=== PATIENT | male | born 1955 | race Caucasian/White ===

== ENCOUNTER → 2016-07-10 | Outpatient (CLI) | payer OTHER ==
[2016-07-10 16:02] LABS: ABSOLUTE BASOPHILS # (AUTO) 0.1 10^3/uL (0.0-0.2); ABSOLUTE EOSINOPHILS # (AUTO) 0.5 10^3/uL (0.0-0.6); ABSOLUTE MONOCYTES (AUTO) 0.5 10^3/uL (0.1-1.4); ABSOLUTE NEUT (AUTO) 5.4 10^3/uL (1.7-8.2); BASOPHILS % (AUTO) 0.6 % (0-2); EOSINOPHILS % (AUTO) 6.4 % (0-6); HEMATOCRIT 37.8 % (37.9-51.0); HEMOGLOBIN 13.1 g/dL (13.5-17.0); HGB HCT DIFFERENCE 1.5; LYMPHOCYTES % (AUTO) 23.2 % (13-45); MEAN CORPUSCULAR HEMOGLOBIN 31.2 pg (27.0-33.4); MEAN CORPUSCULAR HGB CONC 34.6 g/dL (32.0-36.0); MEAN CORPUSCULAR VOLUME 90 fl (80-97); MONOCYTES % (AUTO) 6.1 % (3-13); RED BLOOD COUNT 4.19 10^6/uL (4.35-5.55); RED CELL DISTRIBUTION WIDTH 12.9 % (11.5-14.0); SEGMENTED NEUTROPHILS % (AUTO) 63.7 % (42-78); WHITE BLOOD COUNT 8.4 10^3/uL (4.0-10.5)
[2016-07-10 16:27] LABS: ALANINE AMINOTRANSFERASE 45 U/L (21-72); ALBUMIN 4.4 g/dL (3.5-5.0); ALKALINE PHOSPHATASE 56 U/L (38-126); ANION GAP 14 (5-19); ASPARTATE AMINO TRANSFERASE 51 U/L (17-59); BILIRUBIN,TOTAL 0.7 mg/dL (0.2-1.3); BLOOD UREA NITROGEN 17 mg/dL (7-20); CARBON DIOXIDE 25 mmol/L (22-30); CHLORIDE 98 mmol/L (98-107); CREATININE RESULT 1.07 mg/dL (0.52-1.25); GLUCOSE 270 mg/dL (75-110); POTASSIUM 5.3 mmol/L (3.6-5.0); SODIUM 136.9 mmol/L (137-145); TOTAL PROTEIN 7.1 g/dL (6.3-8.2)
== END ==
LOC: OD 14:25
PROVIDERS: ATTEND Orthopaedic Surgery Sports Medicine
DX: Z01.810 Encounter for preprocedural cardiovascular examination (principal); Z01.811 Encounter for preprocedural respiratory examination
CPT/HCPCS: 36415; 80053; 85025; 87070

== ENCOUNTER → 2017-01-02 | Outpatient (CLI) | payer OTHER ==
--- NOTE | 2017-01-02 16:39 | XCELERA REPORT ---
[address] [address] Lower Extremity Arterial Evaluation Name: ZACHARY DILLON Age: 61 yrs Gender: Male : 1955 Patient Status: Outpatient Patient Location: Study Date: 01/02/2017 12:42 PM Procedure: A color flow and duplex scan of the lower extremity arteries was performed bilaterally with velocity and waveform anaylsis. Ankle brachial indicies performed. Reason For Study: DM Ordering Physician: FARHANA ERIC Performed By: Cindy Graf Measurements and Calculations Right Left ASSISTANT MANAGER AIRSIDE OPERATIONS PSV 76.1 99.9 cm/sec Prox PFA PSV 47.2 -54.1 cm/sec Prox SFA PSV 77.1 102.5 cm/sec Mid SFA PSV -85.9 -73.8 cm/sec Dist SFA PSV -75.6 -76.4 cm/sec Prox Pop A PSV 57.4 56.2 cm/sec Dist ALESHIA PSV 77.8 88.4 cm/sec Dist BAR HOST PSV 62.9 103.1 cm/sec Jim Pedis PSV 86.9 66.4 cm/sec Right Side Arterial Evaluation Normal velocity and triphasic waveforms noted from the Common Femoral artery to the infrageniculate vessels. 0 % stenosis noted. Ankle Brachial index is 1.3. Left Side Arterial Evaluation Normal velocity and triphasic waveforms noted from the Common Femoral artery to the infrageniculate vessels. 0 % stenosis noted. Ankle Brachial index is 1.3. Interpretation Summary No hemodynamically significant lesions in the bilateral lower extremities, on duplex imaging, at rest. : FARHANA ERIC > Levon Treviño
== END ==
LOC: SP 12:35
PROVIDERS: ATTEND Internal Medicine
DX: E08.51 Diabetes mellitus due to underlying condition with diabetic peripheral angiopathy without gangrene (principal)
CPT/HCPCS: 93922; 93925

== ENCOUNTER 2017-01-17 10:29 | Day surgery (SDC) | payer OTHER ==
[2017-01-15 12:23] LABS: ABSOLUTE EOSINOPHILS # (AUTO) 0.1 10^3/uL (0.0-0.6); ABSOLUTE LYMPHOCYTES (AUTO) 2.4 10^3/uL (0.5-4.7); ABSOLUTE MONOCYTES (AUTO) 0.5 10^3/uL (0.1-1.4); ABSOLUTE NEUT (AUTO) 5.4 10^3/uL (1.7-8.2); BASOPHILS % (AUTO) 0.4 % (0-2); HEMATOCRIT 36.4 % (37.9-51.0); HEMOGLOBIN 13.2 g/dL (13.5-17.0); HGB HCT DIFFERENCE 3.2; LYMPHOCYTES % (AUTO) 28.4 % (13-45); MEAN CORPUSCULAR HEMOGLOBIN 32.5 pg (27.0-33.4); MEAN CORPUSCULAR HGB CONC 36.1 g/dL (32.0-36.0); MEAN CORPUSCULAR VOLUME 90 fl (80-97); MONOCYTES % (AUTO) 5.8 % (3-13); RED BLOOD COUNT 4.05 10^6/uL (4.35-5.55); RED CELL DISTRIBUTION WIDTH 13.6 % (11.5-14.0); SEGMENTED NEUTROPHILS % (AUTO) 64.4 % (42-78); WHITE BLOOD COUNT 8.4 10^3/uL (4.0-10.5)
[2017-01-15 12:37] LABS: APPEARANCE,URINE CLEAR; BILIRUBIN,URINE NEGATIVE (NEGATIVE); GLUCOSE, URINE NEGATIVE (NEGATIVE); KETONES,URINE NEGATIVE (NEGATIVE); LEUKOCYTE ESTERASE,URINE NEGATIVE (NEGATIVE); NITRITE,URINE NEGATIVE (NEGATIVE); PROTEIN,URINE NEGATIVE (NEGATIVE); URINE SPECIFIC GRAVITY 1.003; UROBILINOGEN,URINE NEGATIVE mg/dL (<2.0)
[~2017-01-17 10:29] MED LIST: CEFAZOLIN 1 GM/D5W RTU 1 GM/50 ML RTUPB IV PRN; RINGERS SOLUTION,LACTATED 1,000 ML IV PRN
[2017-01-17] MEDS ORDERED: DIPHENHYDRAMINE HCL 50 MG/ML VIAL ONE (10:32)
[2017-01-17] MEDS ORDERED: LIDOCAINE 2% INJ (20 MG/ML) 20 ML MDV ONE ×2 (10:32→10:53)
[2017-01-17] MEDS ORDERED: MIDAZOLAM 2 MG/2 ML INJ ONE ×2 (10:32)
[2017-01-17] MEDS ORDERED: FENTANYL CITRATE INJ/PF 100 MCG/2 ML AMPUL ONE (10:32)
[2017-01-17] MEDS ORDERED: KETOROLAC TROMETHAMINE 60 MG/2 ML SDV ONE (10:33)
[2017-01-17] MEDS ORDERED: BUPIVACAINE HCL 0.5 % INJ/PF 30 ML SDV ONE ×2 (10:33→10:53)
[2017-01-17] MEDS ORDERED: LIDOCAINE 2% INJ-PF (20 MG/ML) 10 ML AMPUL ONE (10:33)
[2017-01-17] MEDS ORDERED: PROPOFOL INJ 200 MG/20 ML VIAL IV ONE (10:34)
[2017-01-17] MEDS ORDERED: DEXAMETHASONE SOD PHOSPHATE INJ 4 MG/1 ML VIAL ONE (10:53)
[2017-01-17] MEDS ORDERED: OXYCODONE-ACETAMINOPHEN 5-325 MG TABLET ONE (13:11)
--- NOTE | 2017-01-17 14:09 | [facility] OPERATIVE REPORT E ---
[facility] NAME: ZACHARY DILLON AGE: 61Y DATE OF SURGERY: 01/17/2017 ROOM: PREOPERATIVE DIAGNOSIS: Chronic heel spur syndrome right foot. POSTOPERATIVE DIAGNOSIS: Chronic heel spur syndrome right foot. OPERATION: Endoscopic plantar fasciotomy right foot. SURGEON: DAJUAN GRECO D.P.M. INTRAOPERATIVE FINDINGS: Indicated thickening of the plantar fascia at its attachment to the medical calcaneal planter tubercle of the right foot. There was also a presence of a large spur. Intraoperative findings were confirmed clinically and radiographically. PROCEDURE: The patient was laid in the dorsal recumbent position. The right foot and leg were prepped and draped in the usual standard sterile orthopedic manner after the local anesthesia was administered which was a total ankle block. At this point measurements from the x-rays were transferred to the medial aspect of the right heel. The measurements were as follows: About 5 cm from the posterior aspect of the heel to the tip of the heel spur and about 1.5 cm from the plantar aspect of the foot to the level of the tip of the heel spur. The intersecting points of the two measurements was the level of placement of the small incision on the medial aspect of the right heel. At this point the right leg was elevated for approximately 2 minutes of time and the right ankle pneumatic tourniquet was inflated up to 250 mmHg after the blood was exsanguinated from the right foot. Next the leg was brought to the level of the table and attention was directed right over the medial of the right heel. A 1 cm in length vertical incision was placed right over the level of the intersection of the two points obtained from the x-rays. The initial incision was deepened and the superficial and deep subcutaneous tissues were dissected via blunt and sharp dissection. This dissection was carried until the level of the placement of the instrument station was established which was between the plantar fascia superficially and the heavy layer of adipose tissue inferiorly of the plantar fascia. Using an elevator, a pathway was created for the placement of the probe with the trocar sheath. The pathway was immediately inferior and adjacent to the plantar fascia and extended from medial to lateral direction across the length of the fascia. Next, the probe with the trocar sheath was introduced into the surgical area and a small stab incision was created through the lateral aspect of the heel in order to allow the cylinder to exit on the lateral aspect of the right heel. At this point the probe was removed and the cutting surface of the trocar sheath was adjusted in such a way that it was facing directly superiorly in relationship to the plantar fascia. At this point the scope was introduced into the area and the point of orientation was established. Next, the first intraoperative picture was obtained which documented the very glistening pink plantar fascia. After that using a regular hockey type blade, the plantar fascia was cut from medial to lateral directions. Severe repetitions were performed with this blade due to thickness of the plantar fascia. At this point the second photography was taken documenting the partially severed plantar fascia. Pressure was applied to the ball of the foot and the foot was dorsiflexed and the repetition of cutting from medial to lateral direction continued until the full thickness of the plantar fascia was severed. Only the medial two-thirds of the plantar fascia was completely cut from medial to lateral direction and the lateral one-third of the plantar fascia was left interrupted. Next, the muscle fibers were also cut. At this point the final photography was taken documenting the complete severing of the plantar fascia and again only the medial two-thirds of the fascia were severed. The positioning of the scalpel and the blade were reversed in order to make sure that any unsevered fibers of the plantar fascia were cut completely. The surgical area was irrigated with copious amounts of sterile saline solution. The trocar sheath was removed from the surgical area. The right ankle pneumatic tourniquet was deflated and circulation to the right foot returned to normal immediately as the normal digital color and temperature began apparent. After that, 1 mL of dexamethasone was injected into the surgical area to control postoperative inflammation. A Georgina was introduced from medial to lateral direction into the surgical wound in order to prevent hematoma formation. Next the two stab incisions over the medial and lateral aspect of the heel were closed with 4-0 Nylon. Betadine compression dressing was applied around the right foot following with Rojelio bandage and a surgical shoe. This patient tolerated the procedure well and left the operating room with stable vital signs and in good condition. Patient was taken to the Recovery Room alert, conscious, and oriented. The immediate postoperative recovery was also very uneventful. This patient was sent home with instructions for postoperative care at home. Patient was given pain medicine and antibiotics for about 5 days. This patient was instructed to ambulate with crutches without bearing any weight on the right foot. Patient was allowed to resume a regular diet at dinner time. Again, there are no permanent disabilities anticipated. DICTATING PHYSICIAN: DAJUAN GRECO D.P.M. [id number] PHY#: [id number] ID: [id number] JOB#: [id number] ACCT: [id number] cc:DAJUAN GRECO D.P.M. > MTDLashonda
== END 2017-01-17 13:56 | disposition home or self-care (01) ==
LOC: SC 10:29
PROVIDERS: ATTEND Podiatrist Foot & Ankle Surgery
PROC: 0J8Q3ZZ Division of Right Foot Subcutaneous Tissue and Fascia, Percutaneous Approach (ICD-10-PCS; principal; 2017-01-17 11:45)
DX: M77.31 Calcaneal spur, right foot (principal); M06.9 Rheumatoid arthritis, unspecified
CPT/HCPCS: 36415; 82962; 85025; 81001; 29893; J2250; J3490 ×2; J0690; J1200; J1885; J3010; J2704; 1464; J1100

== ENCOUNTER → 2017-07-31 | Outpatient (CLI) | payer OTHER ==
--- NOTE | 2017-07-31 10:32 | ST Modified Barium Swallow ---
Recommendation - Recommendations Recommendations: Mild pharyngeal residue seen after the swallow. Chronic throat clearing seen and globus sensation reported throughout assessment, before and after PO trials. May benefit from further gastrointestinal assessment. Possible signs of irritable larynx. Medical Diagnoses - Medical Diagnoses Medical Diagnosis Description & ICD-10 Code(s): K21.9 GERD without esophagitis, R13.10 dysphagia Other Medical Diagnoses/Co-Morbidities: Per patient report: GERD, Barretts Esophagus, chronic pain in hip/buttucks, peptic ulcer ST Modified Barium Swallow - General Date: 07/31/17 Referring Physician: Dr. Jose J Willis Risks/Precautions: None - History History obtained from: Patient -: Medical - Patient reports chronic dry throat and throat clearing. Also reports globus sensation, not associated with eating or drinking. Patient does have a history of GERD for which he takes medications. He also states that his doctor performed laryngoscopy which revealed signs of silent reflux. Medications: Per patient report (not complete list): aspirin, protonix, pentoprazole, fluticasone, gabapentin, tramadol, cetrizine - Functional Status Prior Functional Status: INDEPENDENT: feeding - independent - Subjective Patient/caregiver goal(s): safe swallow Cognitive-Linguistic Function: WNL Speech Intelligibility: WNL Current Nutritional Means: PO Current PO diet: Regular Current symptoms: Coughing, c/o Globus sensation Pain: Patient reports, 3/5 - hip and leg pain - Objective Assessment: Upright, Left Lateral - Food Trials Used Food trials used: Thin liquids, Pureed, Regular The patient: Was Able to Self Feed - Oral-Motor Skills Dentition: Full Laryngeal Function: Volitional Cough - WFL, Volitional Swallow - WFL - Assessment Oral prep: Normal Labial closure: Adequate Leakage: None Mastication: Adequate Lingual Movement: Normal Oral stage: Normal for this Procedure - Pharyngeal Stage Initiation of Pharyngeal Stage Reflex: Normal Decreased laryngeal elevation: No Reduced Velopharyngeal Closure: no Reduced pressure generation: No reduced tongue-based retraction: No Pre-swallow pooling in valleculae: Mild Pre-Swallow pooling in pyriforms: None Reduced Thyro-Hyoid approximation: No Reduced epiglottic excursion: No Multiple Swallows with: Cleared w/ Liquid Assist Post-swallow residulas vallecular: Mild Post-Swallow residuals in pyriforms: Mild Pharyngeal Stage Comments: Timely swallow seen. Mild residue in valleculae and pyriform sinus seen after trials of puree and solid textures, this cleared with dry swallows or with liquid wash. Patient continued to comment on globus sensation although no residue was evident per exam. Patient did also state he had a globus sensation prior to the test, and states that he had not had anything to eat yet this day. Patient coughed throughout assessment, although no evident of aspiration was seen, possible penetration x1. Coughing not associated with aspiration or penetration of material. - Fall Risk Assessment Medications/Conditions that increase fall risks include: Antidepressants, sedatives, anti-arrhythmic, diuretic, benzodiazipenes, neuroleptics. BP regulation problems, cardiac problems, balance or gait deficits, neurological problems. Fall Risk Actions Taken: No action needed - Behavioral Observations During evaluation process patient: was cooperative, able to answer questions - Treatment / Educational Needs: Treatment/Education Needs: Treatment consisted of patient education on the role of the Speech Pathologist. Patient's plan of care and golas were communicated as well as scheduling and attendance policies. Recommendations for initial home program were shared. Patient demonstrated understanding and verbalized agreement. - Impression/Summary Laryngeal Penetration: Yes, Flash, during swallow Consistency: Thin - on one trial Tracheal Aspiration: no Compesatory strategies: liquid wash Patient presents with: Pharyngeal stage dysph., Mild-Moderate Risk of Aspiration: Minimal Risk of nutritional compromise: WNL Evaluation and Findings: Patient presents with effective swallow this day. Mild residue seen post swallow in valleculae and pyriform sinus, however, this cleared with liquid wash or dry swallows. Significant coughing seen throughout the exam, as well as continuous globus sensation without signs of aspiration or significant residue. Possible irritable larynx due to patient's history, and possible signs of further gastrointestinal difficulties. - Recommendations Solid diet recommendations: Regular Liquid Diet Modification: Thin Pt/Family education and followup with MD: Yes Dysphagia therapy with OPENSTACK DEVELOPER: no Recommended techniques: Fully Upright During Meal, Small Bites and Sips, Alternate Bites/Sips Information, Precautions and Recommendations: Patient (Verbal) - Time Total Time: 20 - Plan of Care Patient to follow-up with referring physician: Yes Strategies to optimize patient understanding include:: ongoing assessment of educational needs, implementation of educational strategies, and re-education. - - -: Thank you for the opportunity to work with this patient and his/her family. Should you have any questions about this patient's plan or progress, I can be reached at [phone]. Charge G Code? - - -: No
--- NOTE | 2017-08-01 18:21 | RADIOLOGY REPORT (SQ) ---
EXAM DESCRIPTION: COOKIE SWALLOW COMPLETED DATE/TIME: 07/31/2017 9:02 am REASON FOR STUDY: GASTRO-ESOPHAGEAL REFLUX DISEASE WITHOUT ESOPHAGITIS (K21.9) K21.9 GASTRO-ESOPHAG EAL REFLUX DISEASE WITHOUT ESOPHAGITIS COMPARISON: None. TECHNIQUE: Videofluoroscopic swallowing examination was performed in conjunction with speech patholo gy. Videofluoroscopic imaging was obtained and reviewed and these are the findings: RADIATION DOSE: 2 minutes 22 seconds of fluoroscopy was used. 1 images saved to PACS. LIMITATIONS: None FINDINGS: The patient was brought into the fluoro room and placed upright on a modified barium swall ow chair. The patient was then given multiple consistencies mixed with barium to swallow under live fluoroscopic video guidance. According to the Speech Pathologist there was trace laryngeal penetrati on. No aspiration seen. IMPRESSION: TRACE LARYNGEAL PENETRATION. NO ASPIRATION SEEN.PLEASE SEE SPEECH PATHOLOGIST REPORT FO R OTHER FINDINGS AND RECOMMENDATIONS. COMMENT: Quality ID [id number]: Final reports for procedures using fluoroscopy that document radiation exp osure indices, or exposure time and number of fluorographic images (if radiation exposure indices are not available) TECHNICAL DOCUMENTATION: JOB ID: [id number] [employer]- All Rights Reserved
== END ==
LOC: RAD 08:11
PROVIDERS: ATTEND Otolaryngology
DX: K21.9 Gastro-esophageal reflux disease without esophagitis (principal)
CPT/HCPCS: 74230